=== PATIENT | female | born 1970 ===

== ENCOUNTER 2023-12-23 20:17 | Observation (INO) | payer OTHER, SELFPAY ==
[2023-12-23 21:42] VITALS: BP 106/71; PULSE 77; RESP 20; TEMP 38.1; O2SAT 95
[2023-12-23 21:46] VITALS: BMI 28.3
[2023-12-23 22:25] VITALS: TEMP 38.1
[2023-12-23] MEDS: GABAPENTIN 300 MG CAPSULE PO (22:25)
[2023-12-23] MEDS: CELECOXIB 200 MG CAPSULE PO (22:25)
[2023-12-23] MEDS: ACETAMINOPHEN 325 MG TABLET 650 MG PO (22:25)
[2023-12-23] MEDS: LACTATED RINGERS 1,000 ML 100 ML IV (22:26)
[2023-12-23 22:55] VITALS: TEMP 36.7
[2023-12-23 23:23] VITALS: TEMP 36.6
[2023-12-24] VITALS (14 sets, daily range): BP systolic 95–119; BP diastolic 63–75; PULSE 61–88; RESP 13–20; TEMP 36.2–37; O2SAT 96–100; BMI 28.3
--- NOTE | 2023-12-24 | PATH_ITS ---
[facility] Accession Number: [id number] No. of containers..01 Tissue . 01 Material submitted: . appendix - APPENDIX . 01 Diagnosis: APPENDIX, APPENDECTOMY: Acute suppurative appendicitis and acute serositis. Negative for malignancy. MRV 12/26/2023 1241 Local . 01 Electronically signed: . Stephanie Hannah MD, Pathologist NPI- [id number] . 01 Gross description: . Received in formalin with two identifiers and appendix, is a farah vermiform appendix 5.1 x 0.7 cm with mesoappendix extending out to 1.9 cm. The serosa is farah and roughened with adherent material consistent with exudate. The margin is inked blue. The lumen is patent with a small amount of brown semi-solid material and averages 0.1 cm in diameter. The glass are landon-farah and average 0.3 cm thick with no perforations or lesions identified. Business Department Chair sections to include the margin, one-half of the bisected distal tip, and cross-sections are submitted in cassette A1. ([id number]) /SÁNCHEZ 12/25/2023 1202 Local . 01 Pathologist provided ICD-10: K35.80 . 01 CPT . 252683 Specimen Comment: A courtesy copy of this report has been sent to [phone] Performed at: [address] [address], [place], [place] [id number] MD Valdemar Rivera MD Phone: [phone]
[2023-12-24] MEDS: metroNIDAZOLE 500 MG/100 ML PIGGYBACK 100 MG IV ×3 (06:02→21:56)
[2023-12-24 06:11] LABS: Add Manual Diff / Slide Review NO; Basophils Absolute Auto 0 /uL (0-100); Basophils Percent Auto 0.4 % (0-2); Eosinophils Absolute Auto 100 /uL (0-450); Eosinophils Percent Auto 0.8 % (2-4); Hematocrit 37.2 % (36-46); Hemoglobin 12.6 g/dL (12.0-16.0); Lymphocytes Absolute Auto 1700 /uL (1100-4500); Lymphocytes Percent Auto 18.5 % (25-40); Mean Corpuscular HGB Conc 33.9 % (30-36); Mean Corpuscular Hemoglobin 31.5 PG (26-34); Monocytes Absolute Auto 800 /uL (0-900); Monocytes Percent Auto 8.7 % (3-14); Neutrophils Absolute Auto 6500 /uL (1500-7000); Neutrophils Percent Auto 71.6 % (50-75); Platelet Count 175 X10^3/uL (150-400); Red Blood Cell Count 3.99 X10^6/uL (4.0-5.2); Red Cell Distribution Width 13.1 % (11.6-14.8); White Blood Cell Count 9.1 X10^3/uL (4.5-11.0)
[2023-12-24] MEDS: LACTATED RINGERS 1,000 ML 42 ML IV ×2 (09:25→15:17)
[2023-12-24] MEDS: GABAPENTIN 300 MG CAPSULE PO ×3 (09:26→20:41)
[2023-12-24] MEDS: CELECOXIB 200 MG CAPSULE PO ×2 (09:27→20:41)
[2023-12-24 10:58] LABS: BUN Creatinine Ratio 10.8 (6-22); Blood Urea Nitrogen 7 mg/dL (7-17); Calcium 8.5 mg/dL (8.4-10.2); Carbon Dioxide 24 mmol/L (22-32); Chloride 109 mmol/L (98-107); Estimated Glomerular Filt Rate > 60 mL/min (>60); Glucose 99 mg/dL (70-100); HEMOLYSIS 27 (0-50); Potassium 3.8 mmol/L (3.4-5.1); Sodium 139 mmol/L (137-145)
--- NOTE | 2023-12-24 12:04 | PM.HP.1 ---
History of Present Illness History of Present Illness Chief complaint: Appendicitis Narrative: Zainab Hartman is a 53 year old woman who presented to the emergency room at [facility] last night because of 2 days of generalized abdominal pain. She had a CT scan which showed acute uncomplicated appendicitis. It was reported that she may have appendicoliths scan. She also relates that she has a strong family history of severe fatal pulmonary emboli. Her younger brother of a pulmonary embolism after some trauma in 2019. Also has a cousin who of a severe sudden fatal pulmonary embolism. She was worked up last year at [facility] and found to have protein S deficiency. She is not on any anticoagulation. REPLACED BY [facility] Social History Smoking Status: Never smoker alcohol intake: current Meds Home Medications and Allergies Home Medications Medication Instructions Recorded Confirmed Type atorvastatin 20 mg tablet 20 mg PO DAILY 12/23/23 12/23/23 History Allergies Allergy/AdvReac Type Severity Reaction Status Date / Time Sulfa (Sulfonamide Allergy Unknown Hives Verified 12/23/23 22:03 Antibiotics) Exam Vital Signs (past 8 hours): - 12/24/23 07:00 12/24/23 08:00 Temperature 98.1 F Pulse Rate 62 Respiratory Rate 14 Blood Pressure 102/63 Pulse Oximetry 99 Oxygen Delivery Method Room Air Oxygen Flow Rate 0 Oxygen Delivery Method Room Air Oxygen Flow Rate 0 Const General: healthy appearing Resp Effort & Inspection: normal respiratory effort Objective Labs 12/24/23 06:00 12/24/23 06:00 Labs: Laboratory Results - last 24 hr 12/24/23 06:00 WBC 9.1 RBC 3.99 L Hgb 12.6 Hct 37.2 MCV 93.0 MCH 31.5 MCHC 33.9 RDW 13.1 Plt Count 175 Neut % (Auto) 71.6 Lymph % (Auto) 18.5 L Becker % (Auto) 8.7 Eos % (Auto) 0.8 L Baso % (Auto) 0.4 Neut # (Auto) 6500 Lymph # (Auto) 1700 Becker # (Auto) 800 Eos # (Auto) 100 Baso # (Auto) 0 Sodium 139 Potassium 3.8 Chloride 109 H Carbon Dioxide 24 BUN 7 Creatinine 0.65 Estimated GFR > 60 BUN/Creatinine Ratio 10.8 Glucose 99 Calcium 8.5 Assessment & Plan Assessment and plan (1) Acute appendicitis: Qualifiers: Acute appendicitis type: with localized peritonitis Appendicitis gangrene presence: without gangrene Appendicitis perforation presence: without perforation Appendicitis abscess presence: without abscess Qualified Code(s): K35.30 - Acute appendicitis with localized peritonitis, without perforation or gangrene Status: Acute Plan I discussed the condition of acute appendicitis with Antonette and her as well as the treatment options. I described our standard approach which is laparoscopic appendectomy and the alternative approach which is IV antibiotic therapy. Given that she has a appendicoliths surgery would be preferred to reduce the risk of recurrence. Since she has protein S deficiency I will attempt to retrieve records from the [facility] consultation. I suspect that with perioperative anticoagulation and ongoing anticoagulation at home and possibly radiological surveillance we can minimize her risk of thromboembolic events. I discussed the possibility of a slight increase in surgical bleeding although it should be relatively low given the nature of her surgery. Time-Based Coding :: [TOTAL MINUTES] spent with patient and on the chart (including review of chart, obtaining history, exam, reviewing outside data, placing orders, documenting exam and treatment plan, and counseling patient) on [DATE].
[2023-12-24] MEDS: ENOXAPARIN 40 MG/0.4 ML SYRINGE SUBCUT (12:26)
--- NOTE | 2023-12-24 12:27 | CM.DANOTE ---
DCP Assessment note Pt is a 53yo F here with appendicitis under the care of the surgical team. Lives with spouse at [place]. PCP Maryjane Thakkar [employer] and [employer] OUTSOLE ROUNDER reviewed EMR. Per chart, pt was a direct admit from [facility] on Sunday, transport via helicopter. Per RN report, plan for surgery with Dr. Mcguire at 1500 today vs continue with IV antibiotics. OUTSOLE ROUNDER met with pt in room. Pt confirms lives indep/active in [place]. Spouse here to support pt, hopeful for dc home tomorrow if possible due to late surgery. Spouse also came over on helicopter, plan to either do walk on ferry back or spouse will go home, get car, come back, and then take pt home. Pt hopeful for taxi service here to ferry if walk on or priority boarding pass if spouse gets car and they are unable to get reservation. Deny other CM needs at this time. OUTSOLE ROUNDER updated RN on need for assistance either with taxi to ferry or priority boarding pass if pt were to discharge after CM team leaves for the day. RN will pass that along in report. P: home with spouse support. Either walk on ferry (transport with Lexy needed to ferry) vs spouse to drive if go and come back with car (will attempt to make reservation and if unable, hopeful for priority boarding pass). CM team will continue to follow as needed SOFIA Fall Discharge Planning/Care Management CM Discharge Assessment Start: 12/24/23 12:26 Freq: Status: Active Protocol: Document 12/24/23 12:26 JORGE (Rec: 12/24/23 12:27 [id number]) Discharge Planning Assessment Assigned Epoxy Specialist SOFIA [facility] DPOA/Assigned Designee Name amy [place] Contact Information [phone] Advance Directives? No History Provided By Patient Prior Living Arrangements House Household Members spouse Type of transporation used prior to Drives own vehicle admit Independent with ADL's Yes Is patient alert and oriented? Yes Barriers to Discharge No Discharge Plan Home Referrals Initiated None needed Whiteboard Updated in Patient Room with Yes name and ext. # of Epoxy Specialist Review Status In Process Please Provide Date Initial DC 12/24/23 Assessment Was Performed Next Review Type Continued Stay Review
--- NOTE | 2023-12-24 15:42 | PC.NURSE ---
Received report from yaakov Minor, patient in surgery currently. Patient was picked up for surgery at 1500.
[2023-12-24] MEDS: CEFAZOLIN 2 GM/100 ML PREMIX 100 ML IV (15:50)
--- NOTE | 2023-12-24 16:31 | SUR.OPER ---
Supine on padded OR bed, head on pillow, LEFT arm padded and tucked at side, RIGHT ARM SECURED ON PADDED ARMBOARD @ <90 DEGREES, legs uncrossed, safety belt at thigh, tape over blanket over lower legs .
[2023-12-24] MEDS: BUPIVACAINE 0.5% (PF) 30 ML VIAL INJ (16:43)
--- NOTE | 2023-12-24 17:01 | PM.OP.1 ---
Operative Date/Time/Diagnoses Date of procedure: 12/24/23 Time of procedure: 17:01 Pre-op diagnosis: Acute appendicitis Post-op diagnosis: same Procedure & Clinicians Procedure: Laparoscopic appendectomy Same procedure as scheduled: Yes Surgeon: Jaylen Mcguire Anesthesia Type: General Operative Notes Procedure in detail: The patient was on IV antibiotics. The patient was brought to the operating room, placed on the table in the supine position and general endotracheal anesthesia was induced. A time-out was performed. The abdomen was prepped and draped in the usual fashion. After injection of 0.25% Marcaine a 1 cm infraumbilical incision was created with a 15 blade scalpel. The umbilical stalk was grasped with a Vicky clamp to elevate the abdominal wall. The infraumbilical midline fascia was cleared over 1 cm and the fascia was scored with cautery. The peritoneum was pierced with a Peon clamp. The Jose A port was placed and the abdomen was insufflated to 15 mmHg. The camera was inserted and there was no evidence of any injury from the entry. Next, 5 mm ports were placed in the suprapubic and left lower quadrant positions under direct vision. The patient was placed in Trendelenburg with the right-side elevated. The terminal ileum was swept away from the cecum and the appendix was visualized. The appendix was inflamed and distended. There were adhesions small bowel, cecum and omentum over the appendix which were bluntly dissected. A small perforation was noted along the midportion of the appendix during manipulation. All of the spillage was easily suctioned away. The mesoappendix was divided with the Power-seal to its juncture with the cecum. Two PDS Endoloops were placed at the base and a 3rd endoloop was placed about a centimeter distally and the appendix was divided sharply. The specimen was placed in a Endo-Catch bag. A small amount of fluid with suctioned from the base of the appendix and pelvis. The table was flattened and the terminal ileum and omentum were allowed to slide in over the appendiceal stump. Finally, the 5 mm ports were removed under direct vision. The pneumoperitoneum was released and the Jose A port was removed followed by the Endo-Catch bag. Additional local was injected into the fascia and the infraumbilical incision was closed with 2 interrupted 2-0 Vicryl sutures. The skin incisions were closed with 4 Monocryl. Steri-Strips were applied followed by Band-Aids. EBL: 5 mL Specimen: Appendix Post-operative Condition: stable Disposition: PACU
[2023-12-24] MEDS: HYDROCODONE/ACET 5/325 TABLET 1 TAB PO (17:27)
--- NOTE | 2023-12-24 18:05 | PC.NURSE ---
Patient back from surgery to room 203 post op 1745, VSS. 3 bandaids to abdomen CDI. Call light placed within reach, continue to monitor.
[2023-12-24] MEDS: cefTRIAXone 1,000 MG in SODIUM CHLORIDE 0.9% 100 ML 200 MG IV (18:52)
[2023-12-25] MEDS: HYDROCODONE/ACET 5/325 TABLET 1 TAB PO (00:05)
[2023-12-25 00:26] VITALS: BP 101/59; PULSE 74; RESP 19; TEMP 37.2; O2SAT 97
[2023-12-25 05:50] LABS: Add Manual Diff / Slide Review NO; Basophils Absolute Auto 0 /uL (0-100); Basophils Percent Auto 0.4 % (0-2); Eosinophils Absolute Auto 100 /uL (0-450); Eosinophils Percent Auto 1.4 % (2-4); Hematocrit 35.2 % (36-46); Lymphocytes Absolute Auto 1800 /uL (1100-4500); Lymphocytes Percent Auto 22.8 % (25-40); Mean Corpuscular HGB Conc 34.1 % (30-36); Mean Corpuscular Hemoglobin 31.8 PG (26-34); Mean Corpuscular Volume 93.3 fL (80-100); Monocytes Absolute Auto 700 /uL (0-900); Monocytes Percent Auto 8.6 % (3-14); Neutrophils Absolute Auto 5200 /uL (1500-7000); Neutrophils Percent Auto 66.8 % (50-75); Platelet Count 159 X10^3/uL (150-400); Red Blood Cell Count 3.77 X10^6/uL (4.0-5.2); Red Cell Distribution Width 12.8 % (11.6-14.8); White Blood Cell Count 7.7 X10^3/uL (4.5-11.0)
[2023-12-25] MEDS: metroNIDAZOLE 500 MG/100 ML PIGGYBACK 100 MG IV (06:15)
[2023-12-25 06:33] VITALS: BP 99/65; PULSE 66; RESP 19; TEMP 36.5; O2SAT 98
[2023-12-25] MEDS: ATORVASTATIN 20 MG TABLET PO (10:00)
[2023-12-25] MEDS: ENOXAPARIN 40 MG/0.4 ML SYRINGE SUBCUT (10:00)
[2023-12-25] MEDS: CELECOXIB 200 MG CAPSULE PO (10:00)
[2023-12-25] MEDS: GABAPENTIN 300 MG CAPSULE PO (10:00)
--- NOTE | 2023-12-25 11:58 | CM.DPC ---
DCP Cont. Reviewed EMR and team rounds for status updates. Pt has been medically cleared for d/c. She will be taking [employer] to the [place], her spouse will be waiting for her on the other side.
--- NOTE | 2023-12-27 17:32 | PC.NURSE ---
Late Entry: Ceftriaxone infusion initiated at 1851 complete at 1922
== END 2023-12-25 12:30 | disposition home or self-care (01) ==
PROVIDERS: Surgery; Admitting Provider Surgery; PCP Emergency Medicine; Referring Provider Emergency Medicine; Visit Provider Surgery
PROC: 0DTJ4ZZ Resection of Appendix, Percutaneous Endoscopic Approach (ICD-10-PCS; CPT 44970; principal; 2023-12-24 15:15)
DX: K35.80 Unspecified acute appendicitis (principal)
CPT/HCPCS: 44970; 36415; 80048; 85025; 96365; 96366; 96367; 96372; 99222; G0378; G0379; J0330; J0690; J0696; J1650; J2250; J2405; J2704; J3010